=== PATIENT | male | born 1965 | race African-American/Black ===

== ENCOUNTER 2017-05-11 13:31 | Emergency (ER) | payer SELFPAY ==
[~2017-05-11] VITALS: Ht 188 cm; Wt 93.9 kg
[2017-05-11 13:43] VITALS: BP 131/72
[2017-05-11] MEDS ORDERED: Bacitracin Oint UD TOPIC ONE (14:00)
[2017-05-11] MEDS ORDERED: Lidocaine 1% 10mg/ml/Epi 0.005mg/ml 30ml vial INJ ONE (14:00)
[2017-05-11] MEDS ORDERED: Tetanus/Diptheria/Pertussis Vaccine 0.5ml Syr IM ONE (14:00)
--- NOTE | 2017-05-11 15:10 | Emergency Room Report ---
History of Present Illness General Chief Complaint: Laceration Source: Patient Present Illness HPI 51 YO Male presents to the ED c/o laceration of left lateral hand s/p working on car. pt. not taking blood thinning medications, no loss of sensation or gross motor movements. does not know when his last tetanus vaccination was. Denies numbness tingling or loss of sensation or gross motor movements of the extremities, incontinence of bowel or bladder. Denies CP, Palpitations, LOC, AMS , dizziness, Changes in Vision, Sensation, paresthesias, or a sudden severe headache. Allergies: Coded Allergies: No Known Allergies (Unverified , 05/11/17) Patient History Past Medical History: see triage record Past Surgical History: none Pertinent Family History: none Reviewed Nursing Documentation: PMH: Agreed, PSxH: Agreed Nursing Documentation-PMH Past Medical History: No History, Except For Hx Hypertension: Yes Hx Diabetes: Yes Review of Systems All Other Systems: negative except mentioned in HPI Physical Exam Vital Signs Date Time Temp Pulse Resp B/P Pulse Ox O2 Delivery O2 Flow Rate FiO2 05/11/17 13:37 97.9 81 16 131/72 96 Room Air Sp02 EP Interpretation: reviewed, normal General Appearance: no apparent distress, alert, GCS 15, non-toxic Head: normocephalic, atraumatic Eyes: bilateral eye PERRL, bilateral eye normal inspection ENT: hearing grossly normal, normal pharynx, no angioedema, normal voice Neck: full range of motion, supple/symm/no masses Respiratory: lungs clear, normal breath sounds, speaking full sentences Cardiovascular #1: regular rate, rhythm, no edema, normal capillary refill Musculoskeletal: back normal, gait/station normal, normal range of motion, non- tender Neurologic: alert, oriented x3, responsive, motor strength/tone normal, sensory intact, speech normal Psychiatric: judgement/insight normal, memory normal, mood/affect normal Skin: normal color, no rash, warm/dry, well hydrated, laceration - 3cm lateral left hand laceration, irregular in shape. Procedures Laceration/Wound Repair Laceration/Wound Repair : Consent: Verbal Wound Location: upper extremity - left lateral hand Wound's Depth, Shape: superficial Wound Length (cm): 3 Wound Explored: clean Irrigated w/ Saline (ccs): 500 Anesthesia: Lidocaine w/ Epi Volume Anesthetic (ccs): 4 Wound Repaired With: sutures Suture Size/Type: 5:0 Number of Sutures: 8 Layer Closure?: No Sterile Dressing Applied?: Yes Splint Applied?: Yes Type of Splint Applied: volar hand splint Sling Applied?: No Patient Tolerated: Well Complications: None Medical Decision Making PA Attestation Dr. Pope is my supervising Physician whom patient management has been discussed with. Diagnostic Impression: Primary Impression: Laceration ER Course 51 YO Male presents to the ED c/o laceration of left lateral hand s/p working on car. pt. not taking blood thinning medications, no loss of sensation or gross motor movements. does not know when his last tetanus vaccination was. Denies numbness tingling or loss of sensation or gross motor movements of the extremities, incontinence of bowel or bladder. Denies CP, Palpitations, LOC, AMS , dizziness, Changes in Vision, Sensation, paresthesias, or a sudden severe headache. Ddx considered but are not limited to laceration, tendon injury, cellulitis, amputation Vital signs: are WNL, pt. is afebrile H&PE are most consistent with: lateral left hand laceration approx 3 cm in length ORDERS: none required at this time, the diagnosis is clinical ED INTERVENTIONS: -Tetanus vaccine was administered as pt. vaccination status was unknown. - The wound was copiously irrigated with normal saline, and explored for foreign body for which no FB was found. - pt. is anesthetized with 1%lidocaine w. epi. - The wound was approximated and closed using 8 interrupted 5.0 Prolene sutures in vertical mattress technique -Bacitracin and sterile dressing is applied. - Volar left hand Splint applied by animal husbandry technician. Pt. remains neurovascularly intact. Discussed with patient: That we make every effort to approximate the laceration as best as we can so that scarring will be as cosmetically pleasing as possible with our limited cosmetic skill set in the Emergency dept. Regardless of our best efforts there will be scarring after laceration repair. The extent of scarring is unknown at this time. DISCHARGE: At this time pt. is stable for d/c to home. Will provide printed patient care instructions, and any necessary prescriptions. Care plan and follow up instructions have been discussed with the patient prior to discharge. Last Vital Signs Date Time Temp Pulse Resp B/P Pulse Ox O2 Delivery O2 Flow Rate FiO2 05/11/17 13:43 97.9 16 131/72 96 Room Air 05/11/17 13:37 81 Disposition: HOME, SELF-CARE Condition: Stable Scripts Acetaminophen* (TYLENOL EXTRA STRENGTH*) 500 Mg Tablet 500 MG ORAL Q6H, #20 TAB 0 Refills Prov: Brittany Johnson 05/11/17 Cephalexin* (KEFLEX*) 500 Mg Capsule 500 MG ORAL EVERY 12 HOURS for 7 Days, #14 CAP 0 Refills Prov: Brittany Johnson 05/11/17 Bacitracin/Polymyxin B Sulfate (BACITRACIN-POLYMYXIN OINTMENT) 28.35 Gm Oint...g. 1 APPLIC TP BID, #28.3 GM Prov: Brittany Johnson 05/11/17 Patient Instructions: Laceration Care, Adult Additional Instructions: Take medications as directed. Follow up with PCP in 3-5 days , SUTURES TO BE REMOVED IN 10 DAYS Return sooner to ED if new symptoms occur, or current symptoms become worse. - Please note that this Emergency Department Report was dictated using [employer] out operator technology software, occasionally this can lead to erroneous entry secondary to interpretation by the dictation equipment. Brittany Johnson May 11, 2017 15:10
[2017-05-11] MEDS ORDERED: CEPHALEXIN500 MG ORAL (15:11)
[2017-05-11] MEDS ORDERED: BACITRACIN-P28.35 GM TP (15:11)
[2017-05-11] MEDS ORDERED: TYLENOL EXTRA500 MG ORAL (15:11)
[2017-05-11 15:12] VITALS: BP 130/70
[2017-05-11 15:37] VITALS: BP 130/70
== END 2017-05-11 15:39 | disposition home or self-care (01) ==
LOC: EMR 14:12
DX: S61.412A Laceration without foreign body of left hand, initial encounter (principal); Z23 Encounter for immunization; X58.XXXA Exposure to other specified factors, initial encounter; Y93.9 Activity, unspecified; Y92.9 Unspecified place or not applicable; I10 Essential (primary) hypertension; E11.9 Type 2 diabetes mellitus without complications
CPT/HCPCS: 90471; 90715; 96372